=== PATIENT | male | born 1935 ===

== ENCOUNTER 2017-04-25 14:09 | Inpatient (IN) | payer MEDICARE, MEDICAID ==
[2017-04-25 16:14] LABS: BASO # 0.1 K/uL (0.0-0.2); BASO % 0.9 % (0.0-2.0); EOS # 0.1 K/uL (0.0-0.7); EOS % 1.1 % (0.0-4.0); HEMATOCRIT 47.2 % (35.0-51.0); LYMPH # 1.7 K/uL (1.0-4.3); MEAN CELL VOLUME 91.9 fl (80.0-94.0); MEAN CORPUSCULAR HEMOGLOBIN 30.5 pg (27.0-31.0); MEAN CORPUSCULAR HGB CONC 33.2 g/dL (33.0-37.0); MEAN PLATELET VOLUME 9.3 fl (7.2-11.7); MONO # 0.7 K/uL (0.0-0.8); MONO % 7.1 % (0.0-10.0); NEUT # 7.4 K/uL (1.8-7.0); NEUT % 73.9 % (50.0-75.0); NRBC % 0.1 % (0.0-0.0); RED CELL DISTRIBUTION WIDTH 13.6 % (11.5-14.5)
[2017-04-25 16:16] LABS: ALB/GLOB RATIO 1.4 (1.0-2.1); ALCOHOL SERUM < 10 mg/dl (0-10); ALKALINE PHOSPHATASE 109 U/L (38-126); ALT/SGPT 38 U/L (21-72); AST/SGOT 38 U/L (17-59); BILIRUBIN,TOTAL 0.9 mg/dl (0.2-1.3); BLOOD UREA NITROGEN 16 mg/dl (9-20); CALCIUM 9.9 mg/dL (8.4-10.2); CARBON DIOXIDE 23 mmol/L (22-30); CHLORIDE 104 mmol/L (98-107); GFR AFRICAN-AMERICAN > 60; GLUCOSE,RANDOM 99 mg/dL (75-110); POTASSIUM 4.4 MMOL/L (3.6-5.0); SODIUM 142 mmol/l (132-148); TOTAL PROTEIN 8.3 G/DL (6.3-8.2)
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
[2017-04-25 16:53] LABS: RBC URINE 3 /hpf (0-3); URINE BILIRUBIN NEGATIVE (NEGATIVE); URINE BLOOD NEGATIVE (NEGATIVE); URINE COLOR YELLOW (YELLOW); URINE GLUCOSE (UA) NEG (Normal); URINE KETONE TRACE mg/dL (NEGATIVE); URINE LEUKOCYTE ESTERASE NEG Leu/uL (Negative); URINE PROTEIN NEGATIVE (NEGATIVE); URINE UROBILINOGEN 0.2-1.0 mg/dL (0.2-1.0); WBC URINE 1 /hpf (0-5)
[2017-04-25 23:10] VITALS: O2SAT 96
[2017-04-26] MEDS ORDERED: Magnesium Hydroxide Susp 30 ml UD PO PRN (01:07)
[2017-04-26] MEDS ORDERED: Alum-Mag Hydrox-Simethicone Susp (30 mL) PO PRN (01:07)
[2017-04-26] MEDS ORDERED: Bismuth Subsalicylate 262 mg/15 ml Sus (240 ml) PO PRN (01:07)
[2017-04-26 07:44] LABS: ALB/GLOB RATIO 1.3 (1.0-2.1); ALKALINE PHOSPHATASE 82 U/L (38-126); ALT/SGPT 34 U/L (21-72); AST/SGOT 35 U/L (17-59); BILIRUBIN,TOTAL 0.8 mg/dl (0.2-1.3); BLOOD UREA NITROGEN 16 mg/dl (9-20); CALCIUM 9.3 mg/dL (8.4-10.2); CARBON DIOXIDE 28 mmol/L (22-30); CHLORIDE 107 mmol/L (98-107); CHOLESTEROL 140 mg/dL (0-199); GFR AFRICAN-AMERICAN > 60; GLUCOSE,RANDOM 94 mg/dL (75-110); POTASSIUM 4.4 MMOL/L (3.6-5.0); SODIUM 144 mmol/l (132-148); TOTAL PROTEIN 6.9 G/DL (6.3-8.2)
[2017-04-26 08:03] LABS: T4 8.74 ug/dl (5.5-11.0)
[2017-04-26 08:17] LABS: THYROID STIMULATING HORMONE 1.78 mIU/ML (0.46-4.68)
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
--- NOTE | 2017-04-26 11:28 | RAD ---
HISTORY: ams COMPARISON: No prior. FINDINGS: LUNGS: Hyperinflation, manifestations of COPD. No active pulmonary disease. PLEURA: No significant pleural effusion identified, no pneumothorax apparent. CARDIOVASCULAR: Normal. OSSEOUS STRUCTURES: No significant abnormalities. VISUALIZED UPPER ABDOMEN: Normal. OTHER FINDINGS: None. IMPRESSION: No active disease. Concordant results with the preliminary interpretation rendered by the emergency department physician procedure.
[2017-04-26] MEDS: Divalproex 125 mg DR (BID formulation) PO SCH (16:24)
[2017-04-26 17:56] LABS: FOLATE > 20.0 ng/mL
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
[2017-04-27] MEDS: Divalproex 125 mg DR (BID formulation) PO SCH (08:32)
--- NOTE | 2017-04-27 09:55 | PCM.PYCHPN ---
Psychiatric Progress Note - Psychiatric Progress Note Patient seen today, length of contact: Patient evaluated, case discussed with team, chart reviewed, 35 min Patient Chief Complaint: "I'm okay" Problems Identified/Issues Discussed: Patient continues to have poor insight into his behaviors prior to admission. Poor insight into having dementia. He is calm, cooperative. No episodes of aggression or threatening behavior. He denies anxiety/psychosis. He believes his neighbors were bothering him prior to admission. No homicidal ideation. Medication Change: No Medical Record Reviewed: Yes Consults ordered or reviewed: Medicine consult appreciated Mental Status Examination - Cognitive Function Orientation: Person, Place ("HOSPITAL"), Situation, Time (2017- CAN'T SAY MONTH OR DATE) Memory: Impaired Attention: Poor Concentration: Poor Association: Loose Fund of Knowledge: Poor Decription of patient's judgement and insights: Poor insight/judgment - Mood Mood: Depressed - Affect Affect: Constricted - Speech Speech: Soft - Formal Thought Process Formal Thought Process: Paranoia, Loosening of associations Psychotic Thoughts and Behaviors: Believes his neighbors were bothering him, likely paranoia - Suicidal Ideation Suicidal Ideation: No - Homicidal Ideation Homicidal Ideation: No Goal/Treatment Plan - Goal/Treatment Plan Need for Continued Stay: Remain at risks for inpatient hospitalization, Discharge may exacerbated symptoms Progress Toward Problem(s) and Goals/Treatment Plan: Dementia with behavioral disturbances, Mood disorder unspecified -Continue Nameda 5 mg PO Daily, Aricept 10 mg PO HS -Continue Depakote 125 mg PO BID -Obtain collateral history from family -Medicine consult appreciated -Individual and group therapy -Disposition planning Estimated Date of D/C: 04/30/17
[2017-04-27 16:08] VITALS: RESP 20
--- NOTE | 2017-04-28 10:01 | PCM.PYCHPN ---
Psychiatric Progress Note - Psychiatric Progress Note Patient seen today, length of contact: Patient evaluated, case discussed with team, chart reviewed, 35 min Patient Chief Complaint: "I'm okay" Problems Identified/Issues Discussed: Patient complained that he is being bit by bugs yesterday. His room was switched and properly cleaned. Later after obtained collateral history from the daughter, it was discovered that patient has frequent complaints of bugs biting him without any evidence that there are actually any bugs around. Unclear if this is a delusion or tactile hallucination. He also accuses people of stealing various items in his home (items of no value to others, like articles of clothing). Depakote was stopped yesterday and the patient was starting on Risperdal 0.5 mg PO HS as his behaviors seem more psychotically driven vs mood dysregulation. He is calm, cooperative. No episodes of aggression or threatening behavior. No homicidal ideation. Medication Change: Yes (Stop Depakote, Start Risperdal 0.5 mg PO HS) Medical Record Reviewed: Yes Mental Status Examination - Cognitive Function Orientation: Person, Place ("HOSPITAL"), Situation, Time (2016- CAN'T SAY MONTH OR DATE) Memory: Impaired Attention: Poor Concentration: Poor Association: Loose Fund of Knowledge: Poor Decription of patient's judgement and insights: Poor insight/judgment - Mood Mood: Depressed - Affect Affect: Constricted - Speech Speech: Soft - Formal Thought Process Formal Thought Process: Paranoia, Loosening of associations Psychotic Thoughts and Behaviors: +Paranoia, tactile hallucination vs delusions that bugs are constantly biting him - Suicidal Ideation Suicidal Ideation: No - Homicidal Ideation Homicidal Ideation: No Goal/Treatment Plan - Goal/Treatment Plan Need for Continued Stay: Remain at risks for inpatient hospitalization, Discharge may exacerbated symptoms Progress Toward Problem(s) and Goals/Treatment Plan: Dementia with behavioral disturbances, Mood disorder unspecified -Continue Nameda 5 mg PO Daily, Aricept 10 mg PO HS -Stop Depakote -Start Risperdal 0.5 mg PO HS -Medicine consult appreciated -Individual and group therapy -Disposition planning Estimated Date of D/C: 04/30/17
--- NOTE | 2017-04-28 18:37 | CARD ---
APPROVED REPORT EKG Measurement Heart [id number] <Conclusion> Normal sinus rhythm Normal ECG
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
[2017-04-29 16:44] VITALS: BP 145/77; PULSE 75; TEMP 97
== END 2017-04-29 18:47 | disposition home health service (06) | DRG 57 ==
LOC: H.ER 14:09 → H.ERHOLD 18:14 → H.STEP 04-26 00:57
PROVIDERS: ADMIT Psychiatry & Neurology Psychiatry; ATTEND Psychiatry & Neurology Psychiatry
PROC: GZ51ZZZ Individual Psychotherapy, Behavioral (ICD-10-PCS; principal; 2017-04-25)
DX: G30.9 Alzheimer's disease, unspecified (principal); F02.81 Dementia in other diseases classified elsewhere, unspecified severity, with behavioral disturbance; K21.9 Gastro-esophageal reflux disease without esophagitis; Z79.899 Other long term (current) drug therapy; R45.87 Impulsiveness